=== PATIENT | male | born 1955 | race Caucasian/White ===

== ENCOUNTER 2019-08-09 10:59 | Inpatient (IN) | payer BC ==
[2019-08-05 15:22] LABS: BASOPHILS # (AUTO) 0.1 (0.0-0.1); BASOPHILS % 0.6 % (0.0-1.0); EOSINOPHILS # (AUTO) 0.2 (0.0-0.4); EOSINOPHILS % 1.8 % (0.0-6.0); HEMATOCRIT 42.6 % (38.2-49.6); HEMOGLOBIN 14.4 g/dL (14.0-18.0); LYMPHOCYTES # (AUTO) 2.4 (1.0-3.2); LYMPHOCYTES % 23.4 % (18.0-39.1); MEAN CORPUSCULAR HEMOGLOBIN 30.8 pg (28-32); MEAN CORPUSCULAR HGB CONC 33.8 g/dL (31-35); MEAN CORPUSCULAR VOLUME 91.2 fL (81-99); MONOCYTES # (AUTO) 0.9 (0.2-0.8); MONOCYTES % 8.6 % (4.4-11.3); NEUTROPHILS # (AUTO) 6.8 (2.1-6.9); NEUTROPHILS % 65.2 % (38.7-80.0); PLATELET COUNT 297 x10e3/uL (140-360); RED BLOOD COUNT 4.67 x10e6/uL (4.3-5.7); RED CELL DISTRIBUTION WIDTH 13.2 % (11.7-14.4)
--- NOTE | 2019-08-05 15:26 | Diagnostic Imaging Report ---
EXAM: CHEST 2 VIEWS DATE: 08/05/2019 2:37 PM INDICATION: Preoperative evaluation COMPARISON: None FINDINGS: The trachea is midline. There are mildly increased lower lung zone opacity suggestive of atelectasis/scarring. The lungs are otherwise symmetrically expanded without evidence for large focal consolidation, pneumothorax, or significant pleural effusion. The cardiomediastinal silhouette and pulmonary vasculature are within normal limits. No acute osseous abnormality is identified. The surrounding soft tissues are unremarkable. IMPRESSION: No acute cardiopulmonary process identified. Signed by: Dr. Esa Capone MD on 08/05/2019 3:23 PM
[2019-08-05 15:39] LABS: ANION GAP 11.1 mmol/L (8-16); BLOOD UREA NITROGEN 12 mg/dL (7-26); BUN/CREATININE RATIO 12 (6-25); CALCIUM 9.8 mg/dL (8.4-10.2); CARBON DIOXIDE 27 mmol/L (22-29); CHLORIDE 102 mmol/L (98-107); CREATININE, SERUM 1.03 mg/dL (0.72-1.25); EST GLOMERULAR FILTRATION RATE > 60 ML/MIN (60-); GLUCOSE 91 mg/dL (74-118); POTASSIUM 4.1 mmol/L (3.5-5.1); SODIUM 136 mmol/L (136-145)
[~2019-08-09] VITALS: Ht 165.1 cm; Wt 87.5 kg
[~2019-08-09 10:59] MED LIST: DOXAZOSIN MESYLA2 MG PO; FINASTERIDE5 MG PO; LISINOPRIL10 MG PO; LOVASTATIN20 MG PO; MEN'S 50 PLUS1 EACH PO; VITAMIN C500 M1 PO; VITAMIN E400 UNIT PO
--- OUTSIDE RECORDS SUMMARY | 2019-08-09 11:02 | XMS REPORT ---
Author Author [facility] Address Unknown Phone Unavailable Care Team Providers Care Plant Production Manager Name Role Phone VERITO WILLETT Unavailable Unavailable Problems This patient has no known problems. Allergies, Adverse Reactions, Alerts This patient has no known allergies or adverse reactions. Medications This patient has no known medications. Results Test Description Test Time Test Comments Text Results Atomic Results Result Comments CHEST 2 VIEWS 2019-08-05 15:22:00 [place] [address] Patient Name: ALMA CARLSON MR #: [id number] : 1955 Age/Sex: 64/M Req #: [id number] [facility] Physician: Ordered by: VERITO WILLETT MD Report #: [id number] Location: OR Room/Bed: Procedure: [id number] DX/CHEST 2 VIEWS Exam Date: Exam Time: REPORT STATUS: Signed EXAM: CHEST 2 VIEWS DATE: 08/05/2019 2:37 PM INDICATION: Preoperat jose evaluation COMPARISON: None FINDINGS: The trachea is midline. There are mildly increased lower lung zone opacity suggestive of atelectasis/scarring. The lungs are otherwise symmetrically expanded without evidence for large focal consolidation, pneumothorax, or significant pleural effusion. The cardiomediastinal silhouette and pulmonary vasculature are within normal limits. No acute osseous abnormality is identified. The surrounding soft tissues are unremarkable. IMPRESSION: No acute cardiopulmonary process identified. Signed by: Dr. Esa Mistry MD on 08/05/2019 3:23 PM Dictated By: ESA MISTRY MD 1523 Transcribed By: JANIS on 08/05/19 1523 COPY TO: VERITO WILLETT MD
[2019-08-09] MEDS ORDERED: GENTAMICIN 80MG/NS 100 ML 200 ML IV ONE (11:42)
[2019-08-09] MEDS ORDERED: CLINDAMYCIN 300MG 50 ML IV ONE (11:42)
[2019-08-09] MEDS ORDERED: LEVOFLOXACIN 500MG/D5W 100ML 100 ML IV ONE (11:42)
[2019-08-09] MEDS ORDERED: B&O 60MG R/S 60 MG SUPP PR ONE (13:24)
[2019-08-09] MEDS ORDERED: IOPAMIDOL 300MG/ML 50ML INFUS..BTL IV ONE (13:24)
[2019-08-09] MEDS ORDERED: FENTANYL CITRATE/PF 100MCG/2 ML INJ ONE ×2 (14:11→15:04)
[2019-08-09] MEDS ORDERED: MIDAZOLAM HCL 2 MG/2 ML VIAL ONE (14:11)
[2019-08-09] MEDS ORDERED: DEXAMETHASONE SOD PHOS INJ 4 MG/ML VIAL ONE (14:21)
[2019-08-09] MEDS ORDERED: SEVOFLURANE INHAL SOLN 250 ML PEN BTL ONE (14:21)
[2019-08-09] MEDS ORDERED: PROPOFOL IV EMULSION 10 MG/ML 20 ML VIAL ONE (14:21)
[2019-08-09] MEDS ORDERED: EPHEDRINE SULFATE INJ 50 MG/ML VIAL ONE (14:21)
[2019-08-09] MEDS ORDERED: LIDOCAINE HCL 2% LOCAL INJ 5 ML SDV VIAL INJ ONE (14:21)
[2019-08-09] MEDS ORDERED: ONDANSETRON HCL INJ 2MG/ML 2ML 2 MG/ML VIAL ONE (14:21)
[2019-08-09] MEDS ORDERED: B&O 60MG R/S 60 MG SUPP PR PRN (14:45)
[2019-08-09] MEDS ORDERED: DIPHENHYDRAMINE HCL 25 MG CAP PO PRN (14:45)
[2019-08-09] MEDS ORDERED: ONDANSETRON HCL INJ 2MG/ML 2ML 2 MG/ML VIAL IV PRN (14:45)
[2019-08-09] MEDS ORDERED: ACETAMINOPHEN/CODEINE 300MG - 30MG TAB PO PRN (14:45)
[2019-08-09 15:21] LABS: BASOPHILS % 0.4 % (0.0-1.0); EOSINOPHILS # (AUTO) 0.1 (0.0-0.4); EOSINOPHILS % 1.3 % (0.0-6.0); HEMATOCRIT 39.9 % (38.2-49.6); HEMOGLOBIN 13.6 g/dL (14.0-18.0); LYMPHOCYTES # (AUTO) 1.9 (1.0-3.2); LYMPHOCYTES % 20.1 % (18.0-39.1); MEAN CORPUSCULAR HEMOGLOBIN 31.4 pg (28-32); MEAN CORPUSCULAR HGB CONC 34.1 g/dL (31-35); MEAN CORPUSCULAR VOLUME 92.1 fL (81-99); MONOCYTES # (AUTO) 0.7 (0.2-0.8); MONOCYTES % 7.1 % (4.4-11.3); NEUTROPHILS # (AUTO) 6.6 (2.1-6.9); NEUTROPHILS % 70.8 % (38.7-80.0); PLATELET COUNT 272 x10e3/uL (140-360); RED BLOOD COUNT 4.33 x10e6/uL (4.3-5.7); RED CELL DISTRIBUTION WIDTH 13.2 % (11.7-14.4)
[2019-08-09 15:42] LABS: ANION GAP 11.8 mmol/L (8-16); BLOOD UREA NITROGEN 11 mg/dL (7-26); BUN/CREATININE RATIO 13 (6-25); CARBON DIOXIDE 23 mmol/L (22-29); CHLORIDE 108 mmol/L (98-107); CREATININE, SERUM 0.86 mg/dL (0.72-1.25); EST GLOMERULAR FILTRATION RATE > 60 ML/MIN (60-); GLUCOSE 106 mg/dL (74-118); POTASSIUM 3.8 mmol/L (3.5-5.1); SODIUM 139 mmol/L (136-145)
[2019-08-09] MEDS ORDERED: MORPHINE SULFATE INJ 4 MG/ML INJ 1ML ONE (15:47)
--- NOTE | 2019-08-09 16:05 | NUR ---
PATIENT ARRIVED TO FLOOR. A/O X3, EVEN RESPIRATIONS ON RA. LUNG SOUNDS CLEAR. ROQUE IN PLACE WITH CBI. HAYDEE HOSE AND SCD'S BILATERALLY. IVF @ 125 CC/HR. ORIENTED PATIENT TO ROOM AND CALL LIGHT. CALL LIGHT IN REACH. DR. RAUSCH MADE AWARE OF PATIENT ADMISSION. WILL CONTINUE TO MONITOR PATIENT.
[2019-08-09 16:30] VITALS: BP 120/71
[2019-08-09] MEDS: D5.45%NS/KCL 20MEQ 1,000 ML IV SCH (17:20)
[2019-08-09] MEDS: DOCUSATE SODIUM 100 MG CAP PO SCH (17:20)
[2019-08-09] MEDS: PHENAZOPYRIDINE HCL 100 MG TAB PO SCH (17:20)
[2019-08-09 17:29] VITALS: BP 128/71
[2019-08-09 17:39] VITALS: BP 128/71
[2019-08-09] MEDS ORDERED: ACETAMINOPHEN 1000 MG/100 ML IV PRN (18:00)
--- NOTE | 2019-08-09 19:31 | Operative Report ---
DATE OF PROCEDURE: 08/09/2019 SURGEON: Donn Nugent MD PREOPERATIVE DIAGNOSES: 1. Obstructive BPH. 2. Incomplete bladder emptying. 3. Elevated and rising PSA with no free PSA. POSTOPERATIVE DIAGNOSES: 1. Obstructive BPH. 2. Incomplete bladder emptying. 3. Elevated and rising PSA with no free PSA. OPERATONS PERFORMED: 1. Prostate ultrasonography interpretation, no radiologist present. 2. Interpretation of ultrasonographic guidance, needle biopsies of the prostate, no radiologist present. 3. Transrectal needle biopsies of the prostate (separate procedure performed for the elevated PSA). 4. Cystourethroscopy with bilateral ureteral catheterization and retrograde ureteropyelography (separate procedure performed for the incomplete bladder emptying). 5. Interpretation of retrograde ureteropyelography, no radiologist present. 6. Supervision of fluoroscopy, no radiologist present. 7. Cystourethroscopy with transurethral resection of prostate utilizing PlasmaBand electrode. ANESTHESIA: General. COMPLICATIONS: None. CLINICAL SUMMARY: Zack Arango is a 64-year-old man with the above preoperative diagnoses, who has had a previous prostate biopsy by another urologist, which was negative and the patient's PSA, however, has been progressively rising and he had a low percentage free PSA fraction. The patient has an incomplete bladder emptying with residual was approximately 100 mL. The patient understands the risks of bleeding, infection, injury to adjacent structures, incontinence, impotence, retrograde ejaculation, need for additional procedures and elected to proceed. This procedure was done during the COVID-19 emergency due to the risks that the incomplete bladder emptying would be more progressive and the patient would go into urinary retention in addition to the risk of potentially missing and delaying care of a prostate cancer. With rising PSA, the low PSA percent fraction and the patient's relative young age for clinically significant prostate cancer, the patient elected to proceed with the surgery and is not an elective surgery by any means. PROCEDURE IN DETAIL: Informed consent was verified. Zack Arango was properly identified, taken to the operating room, placed on the cystoscopy table in supine position. Anesthesia was uneventfully begun. The patient was then carefully and gently repositioned in the dorsal lithotomy position with all pressure points well padded. His genitalia were prepared and draped in the usual fashion. The patient was carefully and gently repositioned in the dorsal lithotomy position with all pressure points well padded. Digital rectal examination revealed a 60 g prostate that is smooth and a transrectal ultrasonography was then performed. Real-time ultrasonography was performed transrectally, revealed a prostate that was 49 cc in size. There was some heterogeneity of the prostate and some hypoechoic nature to both peripheral zone regions posteriorly. This was nonspecific and there was no specific nodule that could be pinpoint, but the seminal vesicles were unremarkable. With ultrasonographic guidance, needle biopsies of the prostate were taken, total of 18 biopsies were taken, three each were sent in 6 different containers, they were differentiated right versus left and base versus mid versus apex. The patient's genitalia were then prepared and draped in the usual sterile fashion. The cystoscope sheath with visual obturator in place was atraumatically inserted into the patient's urethra, guided down the unremarkable urethra through the normal sphincteric region, through the prostate bed, which was significant for visually obstructing BPH with an elevated median bar. There were grade 2 trabeculations noted, but there were no suspicious lesions and no stones. An 8-Icelandic catheter was used to cannulate each ureter and retrograde ureteropyelogram was performed. Interpretation of retrograde ureteropyelography contrast was instilled in retrograde fashion bilaterally. There were no tumors, no stones, and no diverticula. Unobstructed drainage was observed bilaterally fluoroscopically. The resectoscope was atraumatically placed with the obturator in place. We utilized the PlasmaBand electrode to resect the prostate from the bladder neck tube, but never passed the verumontanum and down the surgical capsule. Pinpoint electrocautery was utilized to achieve hemostasis. All chips were evacuated and this was verified endoscopically. The resectoscope was withdrawn. Continuous irrigation and Barry catheter were placed. It was irrigated to and fro to ensure it worked properly. It was placed in continuous irrigation with completely clear efflux. The patient was then uneventfully reversed from anesthesia and taken to the recovery room in stable condition. There were no complications from the procedure. The patient tolerated the procedure well. Explicit postop instructions were given. We will proceed with routine postoperative care. Donn Nugent MD [place]/MODL /[id number]
[2019-08-09 20:00] VITALS: BP 128/68
[2019-08-09 21:00] VITALS: BP 128/68
[2019-08-09 22:59] VITALS: BP 128/68
--- NOTE | 2019-08-09 23:00 | NUR ---
Patient in restroom throwing up brownish red vomit in large amounts x5 times. After patient was done he stated he actually felt a bit better. Notified Dr. Mendez, new order for Protonix 40mg IV x1 now then Protonix 40mg Q12hrs, Phenergan 12.5mg x1 now then Q4hrs PRN and place patient on clear liquid diet. Informed patient of Dr. Mendez orders. No further complains from patient at this time.
[2019-08-09] MEDS ORDERED: PANTOPRAZOLE 40 MG 10ML VIAL IV STA (23:34)
[2019-08-09] MEDS ORDERED: PROMETHAZINE 12.5MG/ NACL 0.9% 12.5 MG/50 ML BAG IV PRN (23:45)
[2019-08-09] MEDS ORDERED: PROMETHAZINE 12.5MG/ NACL 0.9% 12.5 MG/50 ML BAG IV ONE (23:45)
[2019-08-10] VITALS (8 sets, daily range): BP systolic 108–124; BP diastolic 61–69
[2019-08-10] MEDS: TRAMADOL HCL 50 MG TAB PO PRN ×3 (00:05→16:59)
--- NOTE | 2019-08-10 00:20 | NUR ---
RECEIVED REPORT FROM NURSE, WILL CONTINUE TO MONITOR.
[2019-08-10] MEDS: D5.45%NS/KCL 20MEQ 1,000 ML IV SCH ×4 (00:46→20:53)
--- NOTE | 2019-08-10 04:00 | NUR ---
patient continue sleep, no distress noted, no further n/v. cbi continue, slight redness hematuria draining to vogel bag. call light in reach. will continue to monitor.
[2019-08-10 05:45] LABS: BASOPHILS % 0.2 % (0.0-1.0); EOSINOPHILS # (AUTO) 0.1 (0.0-0.4); EOSINOPHILS % 0.6 % (0.0-6.0); HEMATOCRIT 38.4 % (38.2-49.6); HEMOGLOBIN 12.9 g/dL (14.0-18.0); LYMPHOCYTES # (AUTO) 1.6 (1.0-3.2); LYMPHOCYTES % 14.4 % (18.0-39.1); MEAN CORPUSCULAR HEMOGLOBIN 31.2 pg (28-32); MEAN CORPUSCULAR HGB CONC 33.6 g/dL (31-35); MEAN CORPUSCULAR VOLUME 92.8 fL (81-99); NEUTROPHILS # (AUTO) 8.2 (2.1-6.9); NEUTROPHILS % 75.4 % (38.7-80.0); PLATELET COUNT 262 x10e3/uL (140-360); RED BLOOD COUNT 4.14 x10e6/uL (4.3-5.7); RED CELL DISTRIBUTION WIDTH 13.5 % (11.7-14.4)
[2019-08-10 06:03] LABS: ANION GAP 9.2 mmol/L (8-16); BLOOD UREA NITROGEN 10 mg/dL (7-26); BUN/CREATININE RATIO 11 (6-25); CALCIUM 8.3 mg/dL (8.4-10.2); CARBON DIOXIDE 27 mmol/L (22-29); CHLORIDE 109 mmol/L (98-107); CREATININE, SERUM 0.87 mg/dL (0.72-1.25); EST GLOMERULAR FILTRATION RATE > 60 ML/MIN (60-); GLUCOSE 107 mg/dL (74-118); POTASSIUM 4.2 mmol/L (3.5-5.1); SODIUM 141 mmol/L (136-145)
--- NOTE | 2019-08-10 07:05 | NUR ---
report given to am nurse, continue resting, call light in reach. cbi continue, urine pinkish color.
--- NOTE | 2019-08-10 07:44 | NUR ---
RECEIVED REPORT FROM SIGNAL TOWER DIRECTOR NURSE, PATIENT IS SLEEPING IN BED, CONTINUOUS BLADDER IRRIGATION NS 3L BAGS HANGING, EMPTIED 1800 OF CLEAR URINE FROM ROQUE BAG. CONTINUOUS FLUIDS RUNNING TO IV. BED LOW AND LOCKED, SIDE RAIL UPX2, HARRISON LIGHT WITHIN REACH.
[2019-08-10] MEDS: PHENAZOPYRIDINE HCL 100 MG TAB PO SCH ×3 (08:23→17:07)
[2019-08-10] MEDS: PANTOPRAZOLE 40 MG 10ML VIAL IV SCH ×2 (08:23→20:53)
[2019-08-10] MEDS: DOCUSATE SODIUM 100 MG CAP PO SCH ×2 (08:23→16:59)
--- NOTE | 2019-08-10 09:15 | History and Physical ---
CHIEF COMPLAINT: "I urinate all the time". HISTORY OF PRESENT ILLNESS: This is a 64-year-old white man, who was initially admitted to [facility] with diagnosis of obstructive benign prostatic hypertrophy as well as elevated PSA level. On day of admission, August 09, 2019, the patient underwent successful prostate ultrasonography with TURP, cystourethroscopy and prostate biopsy. The patient tolerated the surgery quite well. He is currently receiving continuous bladder irrigation as well as intravenous fluids. Today's hemoglobin is 12.9 g/dL. On August 05, 2019, hemoglobin was 14.4 g/dL. White blood cell count today is 10,800 with 75% segmented neutrophils. Today's BUN and creatinine are 10 and 0.87 respectively. Early this morning, the patient did have a single episode of hematemesis. The patient states he has no history of peptic ulcer disease. The patient denies any abdominal pain. The patient does state he is seeking a new primary care physician. REVIEW OF SYSTEMS: GENERAL: Weights are stable. No fever. No chills. HEENT: No headaches. No visual changes CARDIOVASCULAR/RESPIRATORY: No chest pain. No shortness of breath. He states he coughs at times. GI: No nausea, vomiting, or constipation. : The patient has a Barry catheter in place. He is receiving continuous bladder irrigation. NEUROMUSCULAR: No limb weakness or numbness. PAST SURGICAL HISTORY: 1. TURP yesterday. 2. Nasal reconstruction. 3. Testicular cyst resection. ALLERGIES: PENICILLIN. PAST MEDICAL HISTORY: 1. Tobacco abuse. 2. Hypertension. 3. Dyslipidemia. 4. Benign prostatic hypertrophy. 5. Elevated PSA level. FAMILY HISTORY: No family history of prostate cancer. SOCIAL HISTORY: This man is , lives with . Heavy tobacco smoker. States he drinks alcohol socially, but has not drank alcohol in the last nine months. 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 He states he is up-to-date with all adult vaccinations. HOME MEDICATIONS: 1. Vitamin C 500 daily. 2. Doxazosin 4 mg daily. 3. Finasteride 5 mg daily. 4. Lisinopril 12.5 mg daily. 5. Lovastatin 10 mg at bedtime. 6. Multivitamin for men once daily. 7. Vitamin E 400 units daily. PHYSICAL EXAMINATION: GENERAL: He is awake, alert, and fully oriented. He appears to be slightly uncomfortable. He does become somewhat irritable easily. However, he is very cooperative with exam. He has a muscular physique. VITAL SIGNS: Blood pressure is 116/62, pulse 86, respiratory rate 18, oxygen saturation 93% on room air, temperature 97.8, height 5 feet 5 inches, weight 180 pounds, BMI is 30. INTEGUMENT: Skin is warm and dry. No pallor, jaundice, or diaphoresis. HEENT: Anterior sclerae with moist mucous membranes. The patient has obvious left alar disfigurement. He also has a hoarse smoker's voice. NECK: Supple. CARDIOVASCULAR: Distant heart sounds. Regular rate and rhythm. LUNGS: Coarse breath sounds bilaterally with prolonged expiratory phase. ABDOMEN: Soft. Normal bowel sounds. Nontender. : The patient has a Barry catheter in place and as previously stated is receiving continuous bladder irrigation. EXTREMITIES: No edema or deformity. NEUROLOGIC: Intact. DIAGNOSES: 1. Status post TURP. 2. Obstructive benign prostatic hypertrophy. 3. Elevated PSA level. 4. Hypertensive heart disease. 5. Tobacco abuse. 6. Gastritis. 7. Chronic bronchitis, likely. PLAN: 1. Highly recommend tobacco cessation. 2. We will continue intravenous proton pump inhibitor since the patient had an episode hematemesis early this morning. 3. Follow hemoglobin and hematocrit. 4. Continue intravenous fluids. 5. Continue continuous bladder irrigation as recommended by Urology. 6. We will follow up renal function and electrolytes. 7. Recommend incentive spirometer usage to prevent atelectasis. 8. Mobilize with therapy. 9. Monitor blood pressure. 10. Pain control. I spent 45 minutes in the care of this patient. MD AMA Mims/SIDNEY /[id number] MARQUIS
--- NOTE | 2019-08-10 10:40 | NUR ---
Pt sleeping soundly and no family present. Will follow up as able. MAGALIS JONES M48 M60 Armor Crewman Spiritual Care Department O: [phone]
[2019-08-10] MEDS: LEVOFLOXACIN 500MG/D5W 100ML 100 ML IV SCH (11:57)
[2019-08-11 04:00] VITALS: BP 143/75
[2019-08-11 05:57] LABS: BASOPHILS # (AUTO) 0.1 (0.0-0.1); BASOPHILS % 0.5 % (0.0-1.0); EOSINOPHILS # (AUTO) 0.2 (0.0-0.4); EOSINOPHILS % 1.5 % (0.0-6.0); HEMOGLOBIN 12.2 g/dL (14.0-18.0); LYMPHOCYTES % 17.3 % (18.0-39.1); MEAN CORPUSCULAR HGB CONC 33.9 g/dL (31-35); MEAN CORPUSCULAR VOLUME 91.4 fL (81-99); MONOCYTES # (AUTO) 1.3 (0.2-0.8); MONOCYTES % 11.2 % (4.4-11.3); NEUTROPHILS % 69.2 % (38.7-80.0); PLATELET COUNT 280 x10e3/uL (140-360); RED BLOOD COUNT 3.94 x10e6/uL (4.3-5.7); RED CELL DISTRIBUTION WIDTH 13.2 % (11.7-14.4)
[2019-08-11 05:59] LABS: BLOOD UREA NITROGEN 7 mg/dL (7-26); BUN/CREATININE RATIO 9 (6-25); CALCIUM 7.4 mg/dL (8.4-10.2); CARBON DIOXIDE 26 mmol/L (22-29); CHLORIDE 109 mmol/L (98-107); EST GLOMERULAR FILTRATION RATE > 60 ML/MIN (60-); GLUCOSE 96 mg/dL (74-118); POTASSIUM 3.9 mmol/L (3.5-5.1); SODIUM 137 mmol/L (136-145)
[2019-08-11 06:01] LABS: ANION GAP 5.9 mmol/L (8-16)
[2019-08-11 07:36] VITALS: BP 138/68
[2019-08-11] MEDS: D5.45%NS/KCL 20MEQ 1,000 ML IV SCH ×2 (08:28→14:44)
[2019-08-11] MEDS: PHENAZOPYRIDINE HCL 100 MG TAB PO SCH ×2 (08:34→14:01)
[2019-08-11] MEDS: PANTOPRAZOLE 40 MG 10ML VIAL IV SCH (08:34)
[2019-08-11] MEDS: DOCUSATE SODIUM 100 MG CAP PO SCH (08:34)
[2019-08-11 08:39] VITALS: BP 138/68
--- NOTE | 2019-08-11 13:02 | NUR ---
PT'S ROQUE DISCONTINUED PER MD ORDERS, TIP INTACT. INSTRUCTION GIVEN FOR SERIAL URINES. PT TOLERATED WELL.
[2019-08-11] MEDS: LEVOFLOXACIN 500MG/D5W 100ML 100 ML IV SCH (14:01)
[2019-08-11] MEDS: TRAMADOL HCL 50 MG TAB PO PRN (14:19)
--- NOTE | 2019-08-11 15:33 | NUR ---
SPOKE WITH DR. VERITO WILLETT ON TELEPHONE. INFORMED HIM PT HAS VOIDED 4 TIMES, EACH TIME URINE APPEARED CLEAR. DR WILLETT STATES PT IS CLEARED TO BE DISCHARGED FROM HIS STANDPOINT.
[2019-08-11 16:41] VITALS: BP 112/58
--- NOTE | 2019-08-13 09:20 | NUR ---
Dictated DC note: [id number]
--- NOTE | 2019-08-13 09:51 | Discharge Summary ---
ADMIT DIAGNOSES: 1. Obstructive benign prostatic hypertrophy. 2. Elevated prostate-specific antigen level. 3. Hypertensive heart disease. 4. Tobacco abuse. DISCHARGE DIAGNOSES: 1. Status post transurethral resection of prostate. 2. Obstructive benign prostatic hypertrophy. 3. Elevated prostate-specific antigen level. 4. Hypertensive heart disease. 5. Tobacco abuse. 6. Gastritis. 7. Chronic bronchitis, likely. HOSPITAL COURSE: A 64-year-old white man, who was admitted to [facility] with diagnosis of obstructive BPH. The patient was seen by his urologist, namely Dr. Donn Nugent, who performed successful TURP with biopsying of his prostate. The patient's hospitalization was unremarkable. He was hospitalized for a couple of days for bladder irrigation, which he tolerated well. He did have one brief episode of coffee-ground hematemesis, but his symptoms improved with intravenous pantoprazole. His brief hospitalization was unremarkable. On day of discharge, hemoglobin was 12.2 g/dL. DISCHARGE MEDICATIONS: 1. Vitamin C 500 mg daily. 2. Doxazosin 4 mg daily. 3. Finasteride 5 mg daily. 4. Lisinopril 2.5 mg daily. 5. Lovastatin 10 mg at bedtime. 6. Men's multivitamin once daily. 7. Vitamin E 400 units daily. FOLLOWUP INSTRUCTIONS: 1. The patient was instructed to follow up with Urology, Dr. Donn Nugent within 2 weeks. 2. The patient instructed to follow up with the new primary care physician namely myself, Dr. Edwin Mendez also within 2 weeks. 3. Tobacco cessation was recommended to the patient. MD AMA Mims/LISAL /[id number] cc: Donn Nugent MD
== END 2019-08-11 16:55 | disposition home or self-care (01) | DRG 713 ==
LOC: OR 10:59 → PACU V 14:49 → MED/SURG 16:14
PROVIDERS: ADMIT Internal Medicine; ATTEND Internal Medicine
PROC: 0VB07ZX Excision of Prostate, Via Natural or Artificial Opening, Diagnostic (ICD-10-PCS; 2019-08-09)
PROC: BT141ZZ Fluoroscopy of Kidneys, Ureters and Bladder using Low Osmolar Contrast (ICD-10-PCS; 2019-08-09)
PROC: 0VB08ZZ Excision of Prostate, Via Natural or Artificial Opening Endoscopic (ICD-10-PCS; principal; 2019-08-09 13:00)
PROC: 0T788ZZ Dilation of Bilateral Ureters, Via Natural or Artificial Opening Endoscopic (ICD-10-PCS; 2019-08-09 13:00)
DX: N40.1 Benign prostatic hyperplasia with lower urinary tract symptoms (principal); N13.8 Other obstructive and reflux uropathy; K92.0 Hematemesis; I11.9 Hypertensive heart disease without heart failure; K29.70 Gastritis, unspecified, without bleeding; J42 Unspecified chronic bronchitis; F17.200 Nicotine dependence, unspecified, uncomplicated
CPT/HCPCS: 36415; 71046; 74420; 76872; 76998; 80048; 83735; 85025; 88305; 93005; C1758; J1100; J1580; J1956; J2001; J2250; J2270; J2405; J2550; J3010

== ENCOUNTER → 2020-02-18 | Day surgery (SDC) | payer BC, OTHER ==
[~2020-02-18] MED LIST changes: +FENTANYL CITRATE/PF 100MCG/2 ML INJ ONE; +HYOSCYAMINE 0.125 MG TAB ONE; +METOCLOPRAMIDE HCL 10 MG/2ML VIAL ONE; +MIDAZOLAM HCL 2 MG/2 ML VIAL ONE; +PANTOPRAZOLE 40 MG 10ML VIAL ONE; +PROPOFOL IV EMULSION 10 MG/ML 20 ML VIAL ONE
[2020-02-18 19:58] LABS: WBC,FECAL (FECAL LACTOFERRIN) POSITIVE (NEGATIVE)
[2020-02-18 20:00] VITALS: BP 117/83
--- NOTE | 2020-02-18 21:08 | Operative Report ---
DATE OF PROCEDURE: 02/18/2020 SURGEON: Mitch Traylor MD PROCEDURE: EGD with biopsies and a colonoscopy with polypectomy and biopsies. INDICATIONS FOR EGD: Upper abdominal pain exacerbated with meals. INDICATIONS FOR COLONOSCOPY: Chronic diarrhea and marked weight loss. MEDICATIONS: The patient was done under MAC, please see anesthesiologist's note. PROCEDURE IN DETAIL: With the patient in left lateral decubitus position, a flexible fiberoptic Olympus gastroscope was introduced into the esophagus under direct visualization without any difficulty. An approximately 7 cm Jordan's segment was noted extending from the GE junction proximally. Four quadrant biopsies every 2 cm were obtained. The lower esophageal sphincter was incompetent. The scope was then advanced with ease into the stomach traversing a moderate-sized hiatal hernia. Mucosa overlying the antrum and the body revealed some patchy erythema and [id number] edema. Biopsies were obtained sent to stain for H. pylori. Pylorus was of normal contour and shape, it was intubated with ease and the scope was advanced all the way to the second portion of the duodenum. Biopsies were obtained from the proximal second portion and the duodenal bulb to rule out sprue. The scope was then withdrawn back into the stomach and retroflexed, and previously described hiatal hernia was also noted in the retroflexed position. The scope was then straightened out, it was subsequently withdrawn, the patient tolerated procedure well. IMPRESSION: 1. Jordan's segment, approximately 7 cm in length, four quadrant biopsies every 2 cm were obtained. 2. Incompetent lower esophageal sphincter. 3. Moderate-sized hiatal hernia. 4. Gastritis, biopsied, biopsies sent to stain for H. pylori. 5. Rule out sprue. PLAN: Follow up histology. Initiate Protonix 40 mg one p.o. q.a.m. before meals and Carafate 1 g p.o. before meals t.i.d. and at bedtime. The patient was then turned around after adequate lubrication of the anal canal, a flexible fiberoptic Olympus colonoscope was inserted into the rectum with ease and it could not be advanced beyond the rectosigmoid junction due to sharp angulation and fixation of the aforementioned area. It was subsequently withdrawn and a pediatric Olympus fiberoptic colonoscope was then inserted into the rectum and that site was negotiated with some difficulty with the scope eventually was advanced all the way to the cecum. Mucosa overlying the cecum appeared to be within normal limits. The ileocecal valve was intubated and the scope was advanced into the terminal ileum. Multiple aphthous like ulcers were noted in the terminal ileum. Biopsies were obtained. The scope was then withdrawn back into the colon. It was then withdrawn slowly and mucosa overlying the ascending colon grossly appeared to be within normal limits. Of note, diverticular disease was pretty much scattered throughout, but was more prominent in the distal descending and the sigmoid colon. An approximately 1.5 cm sessile polypoid lesion was noted in the transverse colon that was removed per hot snare polypectomy site, it was hemoclipped x1 and that was tattooed. Random biopsies were obtained from the transverse descending sigmoid as well as the rectum as the mucosa manifested some mild patchy inflammatory changes. An approximately 8 mm sessile polyp was hot snared from the descending colon. The rectosigmoid on the way back was suboptimally visualized as it could not be examined well due to its sharp angulation. The scope was then retroflexed into the distal rectum and small internal hemorrhoids were noted, none of which was actively bleeding. The scope was then straightened out, it was subsequently withdrawn. After securing an adequate stool specimen, that was sent for the appropriate stool studies. The patient tolerated procedure well. IMPRESSION: 1. Ileitis, biopsies obtained. 2. Diverticulosis. 3. Transverse colon polyp approximately 1.5 cm sessile, hot snared, hemoclipped x1 and tattooed. 4. Descending colon polyp, hot snared. 5. Sharply angulated rectosigmoid area, traversed with some difficulty with pediatric colonoscope suboptimally visualized. 6. Mild patchy inflammatory changes, left colon and rectum, random biopsies obtained. 7. Internal hemorrhoids, none actively bleeding. PLAN: Follow up histology. Follow up stool studies. Check IBD panel, sedimentation rate, and CRP. We will initiate Bentyl 20 mg one p.o. t.i.d., until the stool studies and the biopsies and the serology is back. Mitch Traylor MD [facility] [place]/MODL /[id number] cc: Edwin Mendez MD
[2020-02-19 11:33] LABS: C DIFFICILE TOXIN A&B AMP PROB NEGATIVE (NEGATIVE)
== END | disposition home or self-care (01) ==
LOC: OR 14:26
PROVIDERS: ATTEND Internal Medicine Gastroenterology
DX: K52.9 Noninfective gastroenteritis and colitis, unspecified (principal); D12.3 Benign neoplasm of transverse colon; K29.70 Gastritis, unspecified, without bleeding; K22.70 Barrett's esophagus without dysplasia; K22.0 Achalasia of cardia; K44.9 Diaphragmatic hernia without obstruction or gangrene; K57.30 Diverticulosis of large intestine without perforation or abscess without bleeding; K56.609 Unspecified intestinal obstruction, unspecified as to partial versus complete obstruction; K64.8 Other hemorrhoids; R63.4 Abnormal weight loss; I10 Essential (primary) hypertension; E78.00 Pure hypercholesterolemia, unspecified; F17.210 Nicotine dependence, cigarettes, uncomplicated; Z01.810 Encounter for preprocedural cardiovascular examination; Z01.812 Encounter for preprocedural laboratory examination; Z11.59 Encounter for screening for other viral diseases; Z68.26 Body mass index [BMI] 26.0-26.9, adult
CPT/HCPCS: 36415; 43239; 45380; 45385; 83630; 83993; 85651; 86140; 86256; 86671; 87045; 87177; 87328; 87493; 93005; C9113; J2250; J2704; J2765; J3010; U0002; 82784; 83516